=== PATIENT | female | born 1940 | race American Indian/Alaskan Native ===

== ENCOUNTER 2020-07-19 19:12 | Inpatient (IN) | payer OTHER ==
[2020-07-19 19:30] VITALS: BMI 26.4
[2020-07-19] MEDS ORDERED: SODIUM CHLORIDE 1,000 ML IV STA (20:47)
[2020-07-19] MEDS ORDERED: morphine CARPU-JECT 2 MG/1 ML DISP.SYRIN IVPUSH ONE (20:47)
[2020-07-19] MEDS ORDERED: ONDANSETRON 4 MG/2 ML VIAL IVPUSH ONE (20:47)
[2020-07-19] MEDS ORDERED: ALBUTEROL SO4 2.5/IPRATROPIUM 0.5 INH SOL 3 ML VIAL.NEB. NEB ONE (20:47)
[2020-07-19] MEDS ORDERED: ONDANSETRON 4 MG/2 ML VIAL ONE (20:57)
[2020-07-19] MEDS ORDERED: morphine SULFATE 4 MG/ML VIAL ONE (20:57)
[2020-07-19 21:10] LABS: BASO % 0.4 % (0-2.0); EOS % 0.8 % (0-4.5); HEMATOCRIT 37.5 % (32.4-45.2); HEMOGLOBIN 12.6 GM/dL (10.7-15.3); LYMPH % 13.1 % (8-40); MCH 29.6 pg (25.7-33.7); MCHC 33.5 g/dl (32.0-36.0); MEAN CELL VOLUME 88.3 fl (80-96); MONO % 3.8 % (3.8-10.2); NEUT % 81.9 % (42.8-82.8); RBC 4.25 M/mm3 (3.60-5.2); RDW 14.3 % (11.6-15.6); WHITE BLOOD COUNT 14.3 K/mm3 (4.0-10.0)
[2020-07-19] MEDS ORDERED: ACETAMINOPHEN 1000 MG/100 ML VIAL (NON FORMULARY) IVPB ONE (21:13)
[2020-07-19 21:15] LABS: INR 1.06 (0.83-1.09); PROTHROMBIN TIME (PATIENT) 12.8 SEC (9.7-13.0)
[2020-07-19 21:18] LABS: ACTIVATED PTT 32.7 SECONDS (25.2-36.5)
[2020-07-19 21:25] LABS: CHLORIDE 93 mmol/L (98-107); POTASSIUM 4.2 mmol/L (3.5-5.1); SODIUM 132 mmol/L (136-145)
[2020-07-19 21:27] LABS: ALBUMIN 4.1 g/dl (3.4-5.0); ANION GAP 11 MMOL/L (8-16); BLOOD UREA NITROGEN 10.2 mg/dL (7-18); CO2 28 mmol/L (21-32); GLUCOSE,RANDOM 141 mg/dL (74-106)
[2020-07-19 21:28] LABS: LIPASE 132 U/L (73-393)
[2020-07-19 21:30] LABS: CREATININE 0.6 mg/dL (0.55-1.3); SGOT/AST 19 U/L (15-37); SGPT/ALT 27 U/L (13-61)
[2020-07-19 21:32] LABS: BILIRUBIN,TOTAL 0.7 mg/dL (0.2-1); TOT PROT 7.9 g/dl (6.4-8.2)
[2020-07-19 21:33] LABS: ALK PHOS 94 U/L (45-117)
[2020-07-19] MEDS ORDERED: ACETAMINOPHEN INJECTION 100 ML IVPB ONE (21:51)
[2020-07-19 22:21] LABS: EPI CELLS 5 /uL (0-25.1); HYALINE CASTS 1 /uL (0-3.1); URINE APPEARANCE CLEAR; URINE BACTERIA 735 /uL (0-1359); URINE BILIRUBIN NEGATIVE (NEGATIVE); URINE COLOR YELLOW; URINE GLUCOSE (UA) NEGATIVE (NEGATIVE); URINE KETONE NEGATIVE (NEGATIVE); URINE LEUK ESTERASE 1+ (NEGATIVE); URINE NITRITE NEGATIVE (NEGATIVE); URINE PROTEIN NEGATIVE (NEGATIVE); URINE RBC 9 /uL (0-23.9); URINE UROBILINOGEN 0.2 mg/dL (0.2-1.0); URINE WBC 11 /uL (0-25.8)
[2020-07-20] MEDS ORDERED: LACTATED RINGERS SOLUTION 1,000 ML/1,000 ML INFUS.BAG IV SCH (02:45)
[2020-07-20] MEDS ORDERED: CEFTRIAXONE 1 GM in DEXTROSE 5%-WATER - 100 ML IVPB ONE (02:51)
[2020-07-20] MEDS ORDERED: CEFTRIAXONE 1 GM/50 ML BAG ONE (02:59)
[2020-07-20] MEDS ORDERED: LOSARTAN POTASSIUM 25 MG TABLET PO ONE (04:11)
[2020-07-20] MEDS ORDERED: SODIUM CHLORIDE 1,000 ML IV SCH (05:00)
[2020-07-20] MEDS ORDERED: ACETAMINOPHEN 325 MG TABLET (FP) PO PRN ×2 (05:01→12:30)
[2020-07-20] MEDS ORDERED: ONDANSETRON 4 MG/2 ML VIAL IVPUSH PRN ×4 (05:01→12:30)
[2020-07-20] MEDS: INSULIN SLIDING SCALE (NOVOLOG) 1 VIAL SQ SCH ×4 (08:34→22:39)
[2020-07-20] MEDS ORDERED: METOPROLOL TARTRATE 50 MG TABLET (FP) PO SCH (10:00)
[2020-07-20] MEDS ORDERED: CEFTRIAXONE 1 GM in DEXTROSE 5%-WATER - 50 ML IVPB SCH (10:00)
[2020-07-20] MEDS ORDERED: PANTOPRAZOLE 20 MG TABLET PO SCH (10:00)
[2020-07-20] MEDS ORDERED: oxyCODONE HCL 5 MG TABLET PO PRN ×2 (11:05→12:30)
[2020-07-20] MEDS ORDERED: BACITRACIN 15 GM TUBE TOPICAL OINTMENT ONE (11:22)
[2020-07-20] MEDS ORDERED: BACITRACIN 15 GM TUBE TOPICAL OINTMENT TP ONE (11:32)
[2020-07-20] MEDS ORDERED: morphine CARPU-JECT 2 MG/1 ML DISP.SYRIN IVPUSH PRN (12:30)
[2020-07-20] MEDS ORDERED: ACETAMINOPHEN 1000 MG/100 ML VIAL (NON FORMULARY) IVPB ONE (12:32)
[2020-07-20] MEDS ORDERED: cefTRIAXone SODIUM 1 GM VIAL IVPB ONE (13:57)
[2020-07-20] MEDS: CEFTRIAXONE 1 GM in DEXTROSE 5%-WATER - 50 ML IVPB SCH (15:31)
[2020-07-20] MEDS: SODIUM CHLORIDE 1,000 ML IV SCH (15:32)
[2020-07-20 16:00] LABS: HEMATOCRIT 33.6 % (32.4-45.2); HEMOGLOBIN 10.9 GM/dL (10.7-15.3); MCHC 32.5 g/dl (32.0-36.0); MEAN CELL VOLUME 89.5 fl (80-96); RBC 3.75 M/mm3 (3.60-5.2); RDW 14.5 % (11.6-15.6); WHITE BLOOD COUNT 14.6 K/mm3 (4.0-10.0)
[2020-07-20 16:02] LABS: INR 1.12 (0.83-1.09); PROTHROMBIN TIME (PATIENT) 13.7 SEC (9.7-13.0)
[2020-07-20 16:04] LABS: ACTIVATED PTT 28.9 SECONDS (25.2-36.5)
[2020-07-20 16:12] LABS: POTASSIUM 3.6 mmol/L (3.5-5.1)
[2020-07-20 16:14] LABS: CALCIUM 8.1 mg/dL (8.5-10.1)
[2020-07-20 16:15] LABS: ALBUMIN 3.3 g/dl (3.4-5.0); BLOOD UREA NITROGEN 6.8 mg/dL (7-18); MAGNESIUM 1.5 mg/dL (1.8-2.4)
[2020-07-20 16:18] LABS: CREATININE 0.5 mg/dL (0.55-1.3); PHOSPHOROUS 3.3 mg/dL (2.5-4.9)
[2020-07-20 16:19] LABS: BILIRUBIN,TOTAL 0.5 mg/dL (0.2-1); TOT PROT 6.5 g/dl (6.4-8.2)
[2020-07-20] MEDS: METOPROLOL TARTRATE 50 MG TABLET (FP) PO SCH (22:39)
[2020-07-21] MEDS: INSULIN SLIDING SCALE (NOVOLOG) 1 VIAL SQ SCH ×5 (06:28→22:28)
[2020-07-21] MEDS ORDERED: cefTRIAXone SODIUM 1 GM VIAL ONE (09:39)
[2020-07-21] MEDS ORDERED: DEXTROSE 5%-WATER - 50 ML IVPB ONE (09:39)
[2020-07-21] MEDS: PANTOPRAZOLE 20 MG TABLET PO SCH (10:14)
[2020-07-21] MEDS: CEFTRIAXONE 1 GM in DEXTROSE 5%-WATER - 50 ML IVPB SCH (10:15)
[2020-07-21] MEDS: METOPROLOL TARTRATE 50 MG TABLET (FP) PO SCH ×2 (10:15→22:28)
[2020-07-21] MEDS: SODIUM CHLORIDE 1,000 ML IV SCH (17:56)
[2020-07-22] MEDS: INSULIN SLIDING SCALE (NOVOLOG) 1 VIAL SQ SCH ×4 (06:38→21:40)
[2020-07-22] MEDS ORDERED: cefTRIAXone SODIUM 1 GM VIAL ONE ×2 (09:09→09:14)
[2020-07-22] MEDS ORDERED: DEXTROSE 5%-WATER - 50 ML IVPB ONE ×2 (09:09→09:14)
[2020-07-22 09:10] LABS: HEMATOCRIT 28.7 % (32.4-45.2); HEMOGLOBIN 9.6 GM/dL (10.7-15.3); MCH 29.6 pg (25.7-33.7); MCHC 33.3 g/dl (32.0-36.0); MEAN PLT VOLUME 7.5 fl (7.5-11.1); PLATELET COUNT 46 K/MM3 (134-434); RBC 3.23 M/mm3 (3.60-5.2); RDW 14.2 % (11.6-15.6); WHITE BLOOD COUNT 11.7 K/mm3 (4.0-10.0)
[2020-07-22] MEDS: PANTOPRAZOLE 20 MG TABLET PO SCH (09:12)
[2020-07-22] MEDS: METOPROLOL TARTRATE 50 MG TABLET (FP) PO SCH ×2 (09:12→21:40)
[2020-07-22] MEDS: CEFTRIAXONE 1 GM in DEXTROSE 5%-WATER - 50 ML IVPB SCH (09:15)
[2020-07-22 09:30] LABS: POTASSIUM 3.2 mmol/L (3.5-5.1)
[2020-07-22 09:33] LABS: BLOOD UREA NITROGEN 3.9 mg/dL (7-18); CALCIUM 7.8 mg/dL (8.5-10.1)
[2020-07-22 09:34] LABS: ALBUMIN 2.9 g/dl (3.4-5.0); MAGNESIUM 1.8 mg/dL (1.8-2.4)
[2020-07-22 09:37] LABS: CREATININE 0.4 mg/dL (0.55-1.3)
[2020-07-22 09:38] LABS: BILIRUBIN,TOTAL 0.7 mg/dL (0.2-1); TOT PROT 5.9 g/dl (6.4-8.2)
[2020-07-22] MEDS ORDERED: POTASSIUM CHLORIDE TABS 20 MEQ TABLET.ER (FP) PO ONE (10:00)
[2020-07-22] MEDS ORDERED: MAGNESIUM HYDROX 2400MG/30ML ORAL SUSPENSION 30 ML CUP PO ONE (10:00)
[2020-07-22] MEDS: BACITRACIN 15 GM TUBE TOPICAL OINTMENT TP SCH ×2 (12:10→21:41)
[2020-07-22] MEDS: ENOXAPARIN NA (PORCINE) 60 MG/0.6 ML DISP.SYRIN SQ SCH ×2 (12:11→21:39)
[2020-07-22] MEDS: SENNOSIDES 8.6MG TABLET (FP) PO SCH (21:40)
[2020-07-22] MEDS: SODIUM CHLORIDE 1,000 ML IV SCH (21:41)
[2020-07-23] MEDS: INSULIN SLIDING SCALE (NOVOLOG) 1 VIAL SQ SCH ×4 (06:18→22:34)
[2020-07-23 09:27] LABS: POTASSIUM 3.4 mmol/L (3.5-5.1)
[2020-07-23] MEDS ORDERED: cefTRIAXone SODIUM 1 GM VIAL ONE (09:30)
[2020-07-23] MEDS ORDERED: DEXTROSE 5%-WATER - 50 ML IVPB ONE (09:30)
[2020-07-23 09:36] LABS: CALCIUM 7.9 mg/dL (8.5-10.1)
[2020-07-23 09:37] LABS: BLOOD UREA NITROGEN 3.5 mg/dL (7-18)
[2020-07-23 09:40] LABS: CREATININE 0.5 mg/dL (0.55-1.3)
[2020-07-23] MEDS: PANTOPRAZOLE 20 MG TABLET PO SCH (09:52)
[2020-07-23] MEDS: ENOXAPARIN NA (PORCINE) 60 MG/0.6 ML DISP.SYRIN SQ SCH ×2 (09:52→22:35)
[2020-07-23] MEDS: METOPROLOL TARTRATE 50 MG TABLET (FP) PO SCH ×2 (09:52→22:35)
[2020-07-23] MEDS: CEFTRIAXONE 1 GM in DEXTROSE 5%-WATER - 50 ML IVPB SCH (09:53)
[2020-07-23] MEDS: POLYETHYLENE GLYCOL 3350 119 GM BTL PO SCH (09:53)
[2020-07-23] MEDS: BACITRACIN 15 GM TUBE TOPICAL OINTMENT TP SCH ×2 (10:01→22:45)
[2020-07-23] MEDS ORDERED: INSULIN (NOVOLOG) ASPART 100 UNITS/ML 10ML VIAL ONE (22:22)
[2020-07-23] MEDS: SENNOSIDES 8.6MG TABLET (FP) PO SCH (22:37)
[2020-07-24] MEDS: INSULIN SLIDING SCALE (NOVOLOG) 1 VIAL SQ SCH ×4 (06:17→23:20)
[2020-07-24 08:42] LABS: HEMATOCRIT 31.8 % (32.4-45.2); HEMOGLOBIN 10.6 GM/dL (10.7-15.3); MCH 29.7 pg (25.7-33.7); MCHC 33.4 g/dl (32.0-36.0); MEAN CELL VOLUME 89.1 fl (80-96); MEAN PLT VOLUME 7.6 fl (7.5-11.1); RBC 3.57 M/mm3 (3.60-5.2); RDW 14.6 % (11.6-15.6)
[2020-07-24 08:59] LABS: POTASSIUM 3.4 mmol/L (3.5-5.1)
[2020-07-24] MEDS ORDERED: cefTRIAXone SODIUM 1 GM VIAL ONE (09:00)
[2020-07-24] MEDS ORDERED: DEXTROSE 5%-WATER - 50 ML IVPB ONE (09:01)
[2020-07-24 09:03] LABS: ALBUMIN 3.1 g/dl (3.4-5.0); BLOOD UREA NITROGEN 5.2 mg/dL (7-18); CALCIUM 8.3 mg/dL (8.5-10.1)
[2020-07-24 09:06] LABS: CREATININE 0.5 mg/dL (0.55-1.3)
[2020-07-24 09:08] LABS: BILIRUBIN,TOTAL 1.2 mg/dL (0.2-1); TOT PROT 6.4 g/dl (6.4-8.2)
[2020-07-24] MEDS ORDERED: POTASSIUM CHLORIDE TABS 20 MEQ TABLET.ER (FP) PO ONE (09:22)
[2020-07-24 10:25] LABS: ANISOCYTOSIS 1+; MACROCYTOSIS 1+
[2020-07-24] MEDS: METOPROLOL TARTRATE 50 MG TABLET (FP) PO SCH ×2 (10:25→23:08)
[2020-07-24] MEDS: POLYETHYLENE GLYCOL 3350 119 GM BTL PO SCH (10:25)
[2020-07-24] MEDS: PANTOPRAZOLE 20 MG TABLET PO SCH (10:26)
[2020-07-24] MEDS: BACITRACIN 15 GM TUBE TOPICAL OINTMENT TP SCH ×2 (10:28→23:20)
[2020-07-24] MEDS: VALSARTAN 80 MG TABLET PO SCH (11:52)
[2020-07-24] MEDS: CEFTRIAXONE 1 GM in DEXTROSE 5%-WATER - 50 ML IVPB SCH (11:56)
[2020-07-24] MEDS: SENNOSIDES 8.6MG TABLET (FP) PO SCH (23:08)
[2020-07-25] MEDS: INSULIN SLIDING SCALE (NOVOLOG) 1 VIAL SQ SCH ×2 (06:51→12:07)
[2020-07-25 08:25] LABS: POTASSIUM 4.3 mmol/L (3.5-5.1)
[2020-07-25 08:41] LABS: BLOOD UREA NITROGEN 8.2 mg/dL (7-18)
[2020-07-25 08:42] LABS: CREATININE 0.5 mg/dL (0.55-1.3)
[2020-07-25 08:46] LABS: BASO % 0.8 % (0-2.0); EOS % 3.4 % (0-4.5); HEMOGLOBIN 9.9 GM/dL (10.7-15.3); LYMPH % 29.6 % (8-40); MCH 29.9 pg (25.7-33.7); MCHC 33.1 g/dl (32.0-36.0); MEAN CELL VOLUME 90.2 fl (80-96); MONO % 8.1 % (3.8-10.2); NEUT % 58.1 % (42.8-82.8); RBC 3.33 M/mm3 (3.60-5.2); RDW 14.9 % (11.6-15.6); WHITE BLOOD COUNT 9.8 K/mm3 (4.0-10.0)
[2020-07-25] MEDS ORDERED: ENOXAPARIN NA (PORCINE) 40 MG/0.4 ML DISP.SYRIN SQ SCH (10:00)
[2020-07-25] MEDS: VALSARTAN 80 MG TABLET PO SCH (10:06)
[2020-07-25] MEDS: PANTOPRAZOLE 20 MG TABLET PO SCH (10:06)
[2020-07-25] MEDS: POLYETHYLENE GLYCOL 3350 119 GM BTL PO SCH (10:06)
[2020-07-25] MEDS: METOPROLOL TARTRATE 50 MG TABLET (FP) PO SCH (10:06)
[2020-07-25] MEDS: BACITRACIN 15 GM TUBE TOPICAL OINTMENT TP SCH (10:11)
[2020-07-25 11:00] LABS: PLATELET ESTIMATE CANNOT ENUMERATE
[2020-07-25 12:30] VITALS: BP 154/65; PULSE 82; TEMP 98.3
== END 2020-07-25 14:28 | disposition home or self-care (01) | DRG 354 ==
LOC: JER 19:12 → JERBED 07-20 02:53 → J6S 07-20 14:53
PROVIDERS: ADMIT Hospitalist; ATTEND Family Medicine
PROC: 0WQF0ZZ Repair Abdominal Wall, Open Approach (ICD-10-PCS; 2020-07-20)
PROC: 0DBU0ZZ Excision of Omentum, Open Approach (ICD-10-PCS; principal; 2020-07-20 11:00)
DX: K42.0 Umbilical hernia with obstruction, without gangrene (principal); N39.0 Urinary tract infection, site not specified; E87.1 Hypo-osmolality and hyponatremia; R18.8 Other ascites; I10 Essential (primary) hypertension; E11.9 Type 2 diabetes mellitus without complications; D72.829 Elevated white blood cell count, unspecified; E87.6 Hypokalemia; D25.9 Leiomyoma of uterus, unspecified; K76.89 Other specified diseases of liver; K43.9 Ventral hernia without obstruction or gangrene
CPT/HCPCS: 36415; 74177-TC; 80048; 80053; 81003; 82533; 82550; 82962; 83605; 83690; 83735; 83930; 84100; 84443; 84484; 85025; 85027; 85610; 85730; 86850; 86900; 86901; 87086; 88302-TC; 93005; 93010; 94760; 97116-GP; 97161-GP; 99285-25; C9803; J0131; Q9967; U0003

== ENCOUNTER 2020-10-10 21:57 | Inpatient (IN) | payer OTHER ==
[2020-10-10 22:50] VITALS: BMI 34.6
[2020-10-10] MEDS ORDERED: ONDANSETRON 4 MG/2 ML VIAL IVPUSH STA (23:07)
[2020-10-10] MEDS ORDERED: SODIUM CHLORIDE 500 ML IV STA (23:10)
[2020-10-10] MEDS ORDERED: morphine CARPU-JECT 2 MG/1 ML DISP.SYRIN IVPUSH ONE (23:34)
[2020-10-10] MEDS ORDERED: LACTATED RINGERS SOLUTION 1000 ML INFUS.BAG IV ONE (23:34)
[2020-10-10] MEDS ORDERED: morphine SULFATE 4 MG/ML VIAL ONE (23:41)
[2020-10-10] MEDS ORDERED: ONDANSETRON 4 MG/2 ML VIAL ONE (23:42)
[2020-10-11] MEDS ORDERED: ACETAMINOPHEN 1000 MG/100 ML VIAL (NON FORMULARY) IVPB ONE (00:07)
[2020-10-11 00:13] LABS: BASO % 0.4 % (0-2.0); EOS % 0.1 % (0-4.5); HEMATOCRIT 35.2 % (32.4-45.2); HEMOGLOBIN 11.5 GM/dL (10.7-15.3); LYMPH % 12.4 % (8-40); MCH 28.3 pg (25.7-33.7); MCHC 32.7 g/dl (32.0-36.0); MEAN CELL VOLUME 86.4 fl (80-96); MEAN PLT VOLUME 8.3 fl (7.5-11.1); MONO % 1.9 % (3.8-10.2); NEUT % 85.2 % (42.8-82.8); PLATELET COUNT 102 K/MM3 (134-434); RBC 4.07 M/mm3 (3.60-5.2); RDW 14.8 % (11.6-15.6); WHITE BLOOD COUNT 14.7 K/mm3 (4.0-10.0)
[2020-10-11 00:43] LABS: SGPT/ALT 25 U/L (13-61)
[2020-10-11 00:45] LABS: BILIRUBIN,TOTAL 0.7 mg/dL (0.2-1); TOT PROT 7.8 g/dl (6.4-8.2)
[2020-10-11 00:46] LABS: ALK PHOS 101 U/L (45-117)
[2020-10-11 01:27] LABS: EPI CELLS 8 /uL (0-25.1); HYALINE CASTS 0 /uL (0-3.1); PH,URINE 7.5 (5.0-8.0); URINE APPEARANCE CLEAR; URINE BACTERIA 64 /uL (0-1359); URINE BILIRUBIN NEGATIVE (NEGATIVE); URINE COLOR YELLOW; URINE GLUCOSE (UA) 1+ (NEGATIVE); URINE KETONE 1+ (NEGATIVE); URINE LEUK ESTERASE 1+ (NEGATIVE); URINE NITRITE NEGATIVE (NEGATIVE); URINE PROTEIN TRACE (NEGATIVE); URINE RBC 19 /uL (0-23.9); URINE UROBILINOGEN 0.2 mg/dL (0.2-1.0); URINE WBC 50 /uL (0-25.8)
[2020-10-11 02:10] LABS: CHLORIDE 95 mmol/L (98-107); POTASSIUM 4.3 mmol/L (3.5-5.1); SODIUM 132 mmol/L (136-145)
[2020-10-11 02:57] LABS: ANION GAP 11 MMOL/L (8-16); BLOOD UREA NITROGEN 10.8 mg/dL (7-18); CALCIUM 9.4 mg/dL (8.5-10.1); CO2 26 mmol/L (21-32); CREATININE 0.6 mg/dL (0.55-1.3); GLUCOSE,RANDOM 183 mg/dL (74-106); LIPASE 82 U/L (73-393); SGOT/AST 37 U/L (15-37)
[2020-10-11] MEDS ORDERED: ONDANSETRON 4 MG/2 ML VIAL IVPUSH ONE (05:53)
[2020-10-11] MEDS ORDERED: ONDANSETRON 4 MG/2 ML VIAL ONE (05:55)
[2020-10-11] MEDS: INSULIN SLIDING SCALE (NOVOLOG) 1 VIAL SQ SCH ×4 (07:52→21:21)
[2020-10-11] MEDS: LOSARTAN POTASSIUM 50 MG TABLET PO SCH (10:04)
[2020-10-11] MEDS ORDERED: CEFTRIAXONE 1 GM/50 ML BAG ONE (10:09)
[2020-10-11] MEDS: CEFTRIAXONE 1 GM in DEXTROSE 5%-WATER - 50 ML IVPB SCH (10:27)
[2020-10-11] MEDS ORDERED: LIDOCAINE HCL 1%, 10 MG/ML (20ML VIAL) ONE (11:04)
[2020-10-11] MEDS ORDERED: LIDOCAINE HCL/PF 2% SDV 5ML VIAL ONE (11:17)
[2020-10-11] MEDS ORDERED: fentaNYL CITRATE 250 MCG/5 ML VIAL ONE (11:17)
[2020-10-11] MEDS ORDERED: PROPOFOL 20 ML ONE (11:17)
[2020-10-11 11:38] LABS: BASO % 1.9 % (0-2.0); HEMATOCRIT 35.9 % (32.4-45.2); MCH 28.4 pg (25.7-33.7); MCHC 33.3 g/dl (32.0-36.0); MEAN CELL VOLUME 85.1 fl (80-96); MONO % 2.5 % (3.8-10.2); NEUT % 85.6 % (42.8-82.8); RBC 4.21 M/mm3 (3.60-5.2); RDW 14.4 % (11.6-15.6)
[2020-10-11 11:41] LABS: INR 1.12 (0.83-1.09); PROTHROMBIN TIME (PATIENT) 13.5 SEC (9.7-13.0)
[2020-10-11 11:43] LABS: WHITE BLOOD COUNT 13.3 K/mm3 (4.0-10.0)
[2020-10-11 12:02] LABS: POTASSIUM 3.5 mmol/L (3.5-5.1)
[2020-10-11 12:04] LABS: CALCIUM 9.5 mg/dL (8.5-10.1)
[2020-10-11 12:05] LABS: ALBUMIN 3.9 g/dl (3.4-5.0); BLOOD UREA NITROGEN 7.3 mg/dL (7-18)
[2020-10-11 12:08] LABS: CREATININE 0.7 mg/dL (0.55-1.3); PHOSPHOROUS 4.2 mg/dL (2.5-4.9)
[2020-10-11 12:09] LABS: BILIRUBIN,TOTAL 0.5 mg/dL (0.2-1)
[2020-10-11] MEDS ORDERED: ROCURONIUM BROMIDE 50 MG/5 ML SYRINGE ONE (12:13)
[2020-10-11] MEDS ORDERED: LIDOCAINE HCL 1%, 10 MG/ML (20ML VIAL) INF ONE (12:23)
[2020-10-11] MEDS ORDERED: BUPIVACAINE HCL/PF 0.5% (5 MG/ML) 30 ML VIAL IJ ONE ×2 (12:23)
[2020-10-11] MEDS ORDERED: BENZOIN/ALOE VERA/STORAX/TOLU 58 ML BOTTLE ONE (12:51)
[2020-10-11] MEDS ORDERED: NEOSTIGMINE METHYLSULFATE 0.5 MG/ML - 10 ML MDV ONE (13:07)
[2020-10-11] MEDS ORDERED: GLYCOPYRROLATE 0.2 MG/1 ML VIAL ONE ×2 (13:17→14:37)
[2020-10-11] MEDS ORDERED: ESMOLOL HCL 100,000 MCG/10 ML VIAL ONE (13:30)
[2020-10-11] MEDS ORDERED: oxyCODONE HCL 5 MG TABLET PO PRN (14:36)
[2020-10-11] MEDS ORDERED: PROMETHAZINE HCL 25 MG/1 ML VIAL IVPUSH PRN (14:36)
[2020-10-11] MEDS ORDERED: NEOSTIGMINE METHYLSULFATE 0.5 MG/1 ML - 10 ML MDV ONE (14:37)
[2020-10-11] MEDS ORDERED: ACETAMINOPHEN 1000 MG/100 ML VIAL (NON FORMULARY) IVPB PRN (14:38)
[2020-10-11] MEDS: SODIUM CHLORIDE 1,000 ML IV SCH (16:46)
[2020-10-11] MEDS: SENNOSIDES 8.6MG TABLET (FP) PO SCH (21:23)
[2020-10-11] MEDS: METOPROLOL TARTRATE 50 MG TABLET (FP) PO SCH (21:23)
[2020-10-11] MEDS: ATORVASTATIN CA 10 MG TABLET (FP) PO SCH (21:23)
[2020-10-11] MEDS: CALCIUM (OYSTER SHELL) 500 MG TABLET (FP) PO SCH (21:23)
[2020-10-11] MEDS ORDERED: CALCIUM 250 MG PO SCH (22:00)
[2020-10-12] MEDS: SODIUM CHLORIDE 1,000 ML IV SCH (03:39)
[2020-10-12] MEDS: INSULIN SLIDING SCALE (NOVOLOG) 1 VIAL SQ SCH ×4 (06:35→21:54)
[2020-10-12 07:59] LABS: HEMATOCRIT 29.6 % (32.4-45.2); HEMOGLOBIN 9.9 GM/dL (10.7-15.3); MCH 28.8 pg (25.7-33.7); MCHC 33.5 g/dl (32.0-36.0); MEAN CELL VOLUME 86.1 fl (80-96); MEAN PLT VOLUME 7.4 fl (7.5-11.1); RBC 3.44 M/mm3 (3.60-5.2); RDW 14.2 % (11.6-15.6); WHITE BLOOD COUNT 13.1 K/mm3 (4.0-10.0)
[2020-10-12 08:21] LABS: BLOOD UREA NITROGEN 6.1 mg/dL (7-18); CALCIUM 8.4 mg/dL (8.5-10.1)
[2020-10-12 08:24] LABS: CREATININE 0.4 mg/dL (0.55-1.3)
[2020-10-12 08:34] LABS: ALBUMIN 2.8 g/dl (3.4-5.0); TOT PROT 5.5 g/dl (6.4-8.2)
[2020-10-12] MEDS ORDERED: DEXTROSE 5%-WATER - 50 ML IVPB ONE (08:50)
[2020-10-12] MEDS ORDERED: cefTRIAXone SODIUM 1 GM VIAL ONE (08:50)
[2020-10-12 09:33] LABS: PLATELET COUNT 25 K/MM3 (134-434)
[2020-10-12] MEDS: CHOLECALCIFEROL (VIT D3) 1,000 UNIT (25 MCG) TABLET PO SCH (09:34)
[2020-10-12] MEDS: ZINC SULFATE 220 MG CAPSULE (FP) PO SCH (09:34)
[2020-10-12] MEDS: CALCIUM (OYSTER SHELL) 500 MG TABLET (FP) PO SCH ×2 (09:36→21:30)
[2020-10-12] MEDS: LOSARTAN POTASSIUM 50 MG TABLET PO SCH (09:36)
[2020-10-12] MEDS: METOPROLOL TARTRATE 50 MG TABLET (FP) PO SCH ×2 (09:36→21:29)
[2020-10-12] MEDS: CEFTRIAXONE 1 GM in DEXTROSE 5%-WATER - 50 ML IVPB SCH (09:36)
[2020-10-12] MEDS: ASPIRIN 81 MG CHEWABLE TABLETS PO SCH (09:36)
[2020-10-12] MEDS: ONDANSETRON 4 MG/2 ML VIAL IVPUSH PRN (09:37)
[2020-10-12] MEDS: ASCORBIC ACID 250 MG TABLET (FP) PO SCH (09:37)
[2020-10-12] MEDS ORDERED: PANTOPRAZOLE 20 MG TABLET PO SCH (10:00)
[2020-10-12] MEDS ORDERED: CHOLECALCIFEROL U PO SCH (10:00)
[2020-10-12 15:54] LABS: BASO % 1.2 % (0-2.0); EOS % 1.1 % (0-4.5); HEMATOCRIT 31.9 % (32.4-45.2); HEMOGLOBIN 10.4 GM/dL (10.7-15.3); LYMPH % 22.5 % (8-40); MCH 28.3 pg (25.7-33.7); MCHC 32.5 g/dl (32.0-36.0); MEAN CELL VOLUME 86.9 fl (80-96); MONO % 5.1 % (3.8-10.2); NEUT % 70.1 % (42.8-82.8); RBC 3.67 M/mm3 (3.60-5.2); RDW 14.4 % (11.6-15.6); RETICULOCYTES 1.31 % (0.5-1.5); WHITE BLOOD COUNT 14.6 K/mm3 (4.0-10.0)
[2020-10-12 16:00] LABS: INR 1.08 (0.83-1.09); PROTHROMBIN TIME (PATIENT) 13.3 SEC (9.7-13.0)
[2020-10-12 17:22] LABS: ANISOCYTOSIS 0; MACROCYTOSIS 0; OVALOCYTE 1+
[2020-10-12] MEDS: ALBUTEROL SO4 0.083% IH SOL 2.5 MG/3 ML VIAL.NEB. NEB PRN (21:18)
[2020-10-12] MEDS: ATORVASTATIN CA 10 MG TABLET (FP) PO SCH (21:29)
[2020-10-12] MEDS: SENNOSIDES 8.6MG TABLET (FP) PO SCH (21:31)
[2020-10-12] MEDS: oxyCODONE HCL 5 MG TABLET PO PRN (21:32)
[2020-10-13] MEDS: INSULIN SLIDING SCALE (NOVOLOG) 1 VIAL SQ SCH ×4 (06:27→22:10)
[2020-10-13] MEDS: ALBUTEROL SO4 0.083% IH SOL 2.5 MG/3 ML VIAL.NEB. NEB PRN (06:35)
[2020-10-13] MEDS: ZINC SULFATE 220 MG CAPSULE (FP) PO SCH (09:05)
[2020-10-13] MEDS: ASCORBIC ACID 250 MG TABLET (FP) PO SCH (09:05)
[2020-10-13] MEDS: oxyCODONE HCL 5 MG TABLET PO PRN (09:05)
[2020-10-13] MEDS: ASPIRIN 81 MG CHEWABLE TABLETS PO SCH (09:05)
[2020-10-13] MEDS: METOPROLOL TARTRATE 50 MG TABLET (FP) PO SCH ×2 (09:06→22:09)
[2020-10-13] MEDS: CALCIUM (OYSTER SHELL) 500 MG TABLET (FP) PO SCH ×2 (09:07→22:09)
[2020-10-13] MEDS: ONDANSETRON 4 MG/2 ML VIAL IVPUSH PRN (09:07)
[2020-10-13] MEDS ORDERED: ACETAMINOPHEN 325 MG TABLET (FP) PO PRN (09:24)
[2020-10-13 09:40] LABS: BASO % 0.4 % (0-2.0); HEMATOCRIT 30.6 % (32.4-45.2); HEMOGLOBIN 9.9 GM/dL (10.7-15.3); LYMPH % 19.8 % (8-40); MCHC 32.5 g/dl (32.0-36.0); MEAN CELL VOLUME 86.2 fl (80-96); MONO % 7.7 % (3.8-10.2); NEUT % 71.1 % (42.8-82.8); RBC 3.55 M/mm3 (3.60-5.2); RDW 14.4 % (11.6-15.6); WHITE BLOOD COUNT 13.2 K/mm3 (4.0-10.0)
[2020-10-13 09:56] LABS: CHLORIDE 96 mmol/L (98-107); SODIUM 132 mmol/L (136-145)
[2020-10-13 09:59] LABS: CALCIUM 8.8 mg/dL (8.5-10.1)
[2020-10-13 10:00] LABS: ALBUMIN 2.8 g/dl (3.4-5.0); BLOOD UREA NITROGEN 5.1 mg/dL (7-18); CO2 29 mmol/L (21-32); GLUCOSE,RANDOM 159 mg/dL (74-106)
[2020-10-13 10:03] LABS: CREATININE 0.5 mg/dL (0.55-1.3); SGOT/AST 19 U/L (15-37); SGPT/ALT 19 U/L (13-61)
[2020-10-13 10:04] LABS: BILIRUBIN,TOTAL 0.9 mg/dL (0.2-1); TOT PROT 5.9 g/dl (6.4-8.2)
[2020-10-13 10:05] LABS: ALK PHOS 76 U/L (45-117)
[2020-10-13 10:07] LABS: ANION GAP 7 MMOL/L (8-16); POTASSIUM 2.9 mmol/L (3.5-5.1)
[2020-10-13] MEDS: LOSARTAN POTASSIUM 50 MG TABLET PO SCH (10:24)
[2020-10-13] MEDS: CHOLECALCIFEROL (VIT D3) 1,000 UNIT (25 MCG) TABLET PO SCH (10:24)
[2020-10-13] MEDS: ALBUTEROL SO4 2.5/IPRATROPIUM 0.5 INH SOL 3 ML VIAL.NEB. NEB SCH ×3 (11:40→20:21)
[2020-10-13] MEDS: KCL 10 MEQ IVPB 10 MEQ/100 ML INFUS.BAG IVPB SCH ×3 (12:38→16:32)
[2020-10-13 21:06] LABS: POTASSIUM 3.9 mmol/L (3.5-5.1)
[2020-10-13 21:08] LABS: CALCIUM 8.3 mg/dL (8.5-10.1)
[2020-10-13 21:12] LABS: CREATININE 0.5 mg/dL (0.55-1.3)
[2020-10-13] MEDS: ATORVASTATIN CA 10 MG TABLET (FP) PO SCH (22:09)
[2020-10-13] MEDS: SENNOSIDES 8.6MG TABLET (FP) PO SCH (22:09)
[2020-10-14] MEDS: ALBUTEROL SO4 0.083% IH SOL 2.5 MG/3 ML VIAL.NEB. NEB PRN (05:26)
[2020-10-14] MEDS: INSULIN SLIDING SCALE (NOVOLOG) 1 VIAL SQ SCH ×3 (06:06→18:57)
[2020-10-14] MEDS: ALBUTEROL SO4 2.5/IPRATROPIUM 0.5 INH SOL 3 ML VIAL.NEB. NEB SCH ×3 (07:20→15:59)
[2020-10-14] MEDS: CHOLECALCIFEROL (VIT D3) 1,000 UNIT (25 MCG) TABLET PO SCH (09:40)
[2020-10-14] MEDS: METOPROLOL TARTRATE 50 MG TABLET (FP) PO SCH (09:40)
[2020-10-14] MEDS: ASPIRIN 81 MG CHEWABLE TABLETS PO SCH (09:40)
[2020-10-14] MEDS: ZINC SULFATE 220 MG CAPSULE (FP) PO SCH (09:40)
[2020-10-14] MEDS: CALCIUM (OYSTER SHELL) 500 MG TABLET (FP) PO SCH (09:41)
[2020-10-14] MEDS: LOSARTAN POTASSIUM 50 MG TABLET PO SCH (09:41)
[2020-10-14] MEDS: ASCORBIC ACID 250 MG TABLET (FP) PO SCH (12:10)
[2020-10-14 13:28] LABS: POTASSIUM 3.5 mmol/L (3.5-5.1)
[2020-10-14 13:31] LABS: CALCIUM 8.9 mg/dL (8.5-10.1)
[2020-10-14 13:32] LABS: BLOOD UREA NITROGEN 4.3 mg/dL (7-18)
[2020-10-14 13:35] LABS: CREATININE 0.4 mg/dL (0.55-1.3)
[2020-10-14 16:13] VITALS: BP 132/58; PULSE 99; TEMP 98.9
== END 2020-10-14 05:00 | disposition home or self-care (01) | DRG 352 ==
LOC: JER 21:57 → JERBED 10-11 04:39 → J6WEST-2 10-11 19:46
PROVIDERS: ADMIT Internal Medicine; ATTEND Family Medicine
PROC: 0YU60JZ Supplement Left Inguinal Region with Synthetic Substitute, Open Approach (ICD-10-PCS; principal; 2020-10-11 11:00)
DX: K40.30 Unilateral inguinal hernia, with obstruction, without gangrene, not specified as recurrent (principal); E11.9 Type 2 diabetes mellitus without complications; I10 Essential (primary) hypertension; D69.6 Thrombocytopenia, unspecified; J45.909 Unspecified asthma, uncomplicated
CPT/HCPCS: 36415; 71045-TC-FY; 74177-TC; 80048; 80053; 81003; 82550; 82728; 82962; 83010; 83605; 83615; 83690; 83735; 84100; 84484; 85025; 85027; 85032; 85045; 85379; 85384; 85610; 86850; 86900; 86901; 93005; 93010; 94002; 94010; 94640; 94760; 97116-GP; 97162-GP; 99285-25; C9803; J0131; U0003

== ENCOUNTER 2021-12-25 08:57 | Emergency (ER) | payer OTHER ==
[2021-12-25 09:17] VITALS: TEMP 98.4; BMI 27.8
[2021-12-25] MEDS ORDERED: LIDOCAINE 5% TOPICAL PATCH TP ONE (10:47)
[2021-12-25] MEDS ORDERED: ACETAMINOPHEN 500 MG TABLET (FP) PO ONE (10:47)
[2021-12-25] MEDS ORDERED: LIDOCAINE 5% TOPICAL PATCH ONE (10:55)
[2021-12-25] MEDS ORDERED: ACETAMINOPHEN 325 MG TABLET (FP) ONE (10:55)
[2021-12-25] MEDS ORDERED: METHOCARBAMOL 500 MG TABLET PO ONE (12:16)
[2021-12-25] MEDS ORDERED: METHOCARBAMOL 500 MG TABLET ONE (13:04)
[2021-12-25 14:30] VITALS: BP 140/82; PULSE 87
[2021-12-25] MEDS ORDERED: LIDOCAINE PATCH REMOVAL MC ONE (22:00)
== END 2021-12-25 15:10 | disposition home or self-care (01) ==
LOC: JER 08:57
DX: S86.912A Strain of unspecified muscle(s) and tendon(s) at lower leg level, left leg, initial encounter (principal); X50.9XXA Other and unspecified overexertion or strenuous movements or postures, initial encounter
CPT/HCPCS: 72100-TC-FY; 99283-25

== ENCOUNTER 2023-05-12 13:13 | Emergency (ER) | payer OTHER ==
[2023-05-12 14:08] VITALS: TEMP 98.1; BMI 31.4
[2023-05-12] MEDS ORDERED: ACETAMINOPHEN 500 MG TABLET (FP) PO ONE (14:44)
[2023-05-12] MEDS ORDERED: METHOCARBAMOL 500 MG TABLET PO ONE (14:44)
[2023-05-12] MEDS ORDERED: LIDOCAINE 5% TOPICAL PATCH TP ONE (14:44)
[2023-05-12] MEDS ORDERED: LIDOCAINE 4% PATCH TP ONE ×2 (14:52→14:53)
[2023-05-12] MEDS ORDERED: ACETAMINOPHEN 500 MG TABLET (FP) ONE (14:54)
[2023-05-12] MEDS ORDERED: METHOCARBAMOL 500 MG TABLET ONE (14:54)
[2023-05-12 16:46] VITALS: BP 127/68; PULSE 80; RESP 16
[2023-05-12] MEDS ORDERED: LIDOCAINE PATCH REMOVAL MC SCH ×2 (22:00)
== END 2023-05-12 17:04 | disposition home or self-care (01) ==
LOC: JER 13:13
DX: M25.551 Pain in right hip (principal); G89.29 Other chronic pain; M54.50 Low back pain, unspecified
CPT/HCPCS: 72100-TC-FY; 99283-25

== ENCOUNTER 2023-05-20 10:38 | Inpatient (IN) | payer OTHER ==
[2023-05-20] MEDS ORDERED: ACETAMINOPHEN 500 MG TABLET (FP) PO ONE (13:10)
[2023-05-20] MEDS ORDERED: ACETAMINOPHEN 325 MG TABLET (FP) ONE (13:17)
[2023-05-20 13:38] LABS: BASO % 0.7 % (0-2.0); EOS % 0.5 % (0-4.5); HEMATOCRIT 35.6 % (32.4-45.2); HEMOGLOBIN 11.4 GM/dL (10.7-15.3); LYMPH % 29.6 % (8-40); MCH 27.5 pg (25.7-33.7); MCHC 32.1 g/dl (32.0-36.0); MEAN CELL VOLUME 85.6 fl (80-96); MEAN PLT VOLUME 8.5 fl (7.5-11.1); MONO % 9.5 % (3.8-10.2); NEUT % 59.7 % (42.8-82.8); RBC 4.16 M/mm3 (3.60-5.2); RDW 14.9 % (11.6-15.6); WHITE BLOOD COUNT 9.1 K/mm3 (4.0-10.0)
[2023-05-20 14:06] LABS: PLATELET COUNT 11 10^3/uL (134-434)
[2023-05-20 14:10] LABS: POTASSIUM 3.7 mmol/L (3.5-5.1)
[2023-05-20] MEDS ORDERED: SODIUM CHLORIDE 0.9% 500 ML INFUS.BAG IV ONE (14:12)
[2023-05-20 14:13] LABS: ALBUMIN 3.4 g/dl (3.4-5.0); CALCIUM 8.3 mg/dL (8.5-10.1)
[2023-05-20 14:14] LABS: BLOOD UREA NITROGEN 11.6 mg/dL (7-18)
[2023-05-20 14:17] LABS: CREATININE 0.7 mg/dL (0.55-1.3)
[2023-05-20 14:18] LABS: BILIRUBIN,TOTAL 0.5 mg/dL (0.2-1); TOT PROT 6.9 g/dl (6.4-8.2)
[2023-05-20 14:48] LABS: EPI CELLS 1 /uL (0-25.1); HYALINE CASTS 0 /uL (0-3.1); PH,URINE 5.5 (5.0-8.0); URINE APPEARANCE CLEAR; URINE BACTERIA 5523 /uL (0-1359); URINE BILIRUBIN NEGATIVE (NEGATIVE); URINE COLOR YELLOW; URINE GLUCOSE (UA) NEGATIVE (NEGATIVE); URINE KETONE NEGATIVE (NEGATIVE); URINE LEUK ESTERASE 3+ (NEGATIVE); URINE NITRITE NEGATIVE (NEGATIVE); URINE PROTEIN NEGATIVE (NEGATIVE); URINE RBC 10 /uL (0-23.9); URINE UROBILINOGEN 0.2 mg/dL (0.2-1.0); URINE WBC 490 /uL (0-25.8)
[2023-05-20] MEDS ORDERED: CEFTRIAXONE 1,000 MG in DEXTROSE 5%-WATER - 50 ML IVPB ONE (15:26)
[2023-05-20] MEDS ORDERED: CEFTRIAXONE 1 GM/50 ML BAG ONE (15:29)
[2023-05-20] MEDS ORDERED: ALBUTEROL SO4 0.083% IH SOL 2.5 MG/3 ML VIAL.NEB. NEB PRN (15:46)
[2023-05-20 20:02] VITALS: BMI 26.4
[2023-05-20] MEDS: METOPROLOL TARTRATE 50 MG TABLET (FP) PO SCH (21:41)
[2023-05-21] MEDS: guaiFENesin 200 MG/10 ML 10 ML UNIT-DOSE CUPS PO PRN ×3 (00:59→21:56)
[2023-05-21] MEDS: OSELTAMIVIR PHOSPHATE 75 MG CAPSULE PO SCH ×3 (00:59→21:48)
[2023-05-21 07:45] LABS: POTASSIUM 3.8 mmol/L (3.5-5.1)
[2023-05-21 07:50] LABS: BASO % 0.7 % (0-2.0); EOS % 0.9 % (0-4.5); HEMATOCRIT 33.8 % (32.4-45.2); HEMOGLOBIN 11.4 GM/dL (10.7-15.3); MCHC 33.6 g/dl (32.0-36.0); MEAN CELL VOLUME 83.3 fl (80-96); MONO % 8.9 % (3.8-10.2); NEUT % 53.5 % (42.8-82.8); RBC 4.06 M/mm3 (3.60-5.2); RDW 15.1 % (11.6-15.6); WHITE BLOOD COUNT 6.6 K/mm3 (4.0-10.0)
[2023-05-21 07:51] LABS: ALBUMIN 3.1 g/dl (3.4-5.0); BLOOD UREA NITROGEN 7.8 mg/dL (7-18); CALCIUM 7.7 mg/dL (8.5-10.1)
[2023-05-21 07:55] LABS: CREATININE 0.5 mg/dL (0.55-1.3)
[2023-05-21 07:57] LABS: BILIRUBIN,TOTAL 0.3 mg/dL (0.2-1); TOT PROT 6.3 g/dl (6.4-8.2)
[2023-05-21] MEDS: METOPROLOL TARTRATE 50 MG TABLET (FP) PO SCH ×3 (09:51→21:49)
[2023-05-21] MEDS ORDERED: ALBUTEROL SO4 0.083% IH SOL 2.5 MG/3 ML VIAL.NEB. NEB PRN (09:53)
[2023-05-21] MEDS: CEFTRIAXONE 1 GM in DEXTROSE 5%-WATER - 50 ML IVPB SCH (13:38)
[2023-05-21] MEDS: ACETAMINOPHEN 325 MG TABLET (FP) PO PRN (21:56)
[2023-05-22 07:53] LABS: POTASSIUM 3.6 mmol/L (3.5-5.1)
[2023-05-22 07:58] LABS: BLOOD UREA NITROGEN 8.5 mg/dL (7-18)
[2023-05-22 07:59] LABS: CALCIUM 7.6 mg/dL (8.5-10.1)
[2023-05-22 08:01] LABS: CREATININE 0.5 mg/dL (0.55-1.3)
[2023-05-22 08:02] LABS: TOT PROT 6.1 g/dl (6.4-8.2)
[2023-05-22 08:03] LABS: BILIRUBIN,TOTAL 0.3 mg/dL (0.2-1)
[2023-05-22 08:05] LABS: BASO % 0.6 % (0-2.0); EOS % 1.1 % (0-4.5); HEMATOCRIT 33.3 % (32.4-45.2); HEMOGLOBIN 11.1 GM/dL (10.7-15.3); LYMPH % 37.5 % (8-40); MCHC 33.4 g/dl (32.0-36.0); MEAN CELL VOLUME 83.8 fl (80-96); MEAN PLT VOLUME 7.5 fl (7.5-11.1); MONO % 8.9 % (3.8-10.2); NEUT % 51.9 % (42.8-82.8); PLATELET COUNT 126 10^3/uL (134-434); RBC 3.97 M/mm3 (3.60-5.2); RDW 15.5 % (11.6-15.6)
[2023-05-22] MEDS: OSELTAMIVIR PHOSPHATE 75 MG CAPSULE PO SCH ×2 (10:57→22:25)
[2023-05-22] MEDS: CEFTRIAXONE 1 GM in DEXTROSE 5%-WATER - 50 ML IVPB SCH (10:57)
[2023-05-22] MEDS: METOPROLOL TARTRATE 50 MG TABLET (FP) PO SCH ×2 (10:57→22:10)
[2023-05-22] MEDS: PANTOPRAZOLE 20 MG TABLET PO SCH (13:56)
[2023-05-22] MEDS: LOSARTAN POTASSIUM 50 MG TABLET PO SCH (13:56)
[2023-05-22] MEDS: SODIUM CHLORIDE 1 GM TABLET PO SCH ×2 (13:56→22:10)
[2023-05-22] MEDS: guaiFENesin 200 MG/10 ML 10 ML UNIT-DOSE CUPS PO PRN (22:26)
[2023-05-23] MEDS: SODIUM CHLORIDE 1 GM TABLET PO SCH ×2 (10:48→22:05)
[2023-05-23] MEDS: METOPROLOL TARTRATE 50 MG TABLET (FP) PO SCH ×2 (10:48→22:05)
[2023-05-23] MEDS: LOSARTAN POTASSIUM 50 MG TABLET PO SCH (10:48)
[2023-05-23] MEDS: CEFTRIAXONE 1 GM in DEXTROSE 5%-WATER - 50 ML IVPB SCH (10:48)
[2023-05-23] MEDS: PANTOPRAZOLE 20 MG TABLET PO SCH (10:48)
[2023-05-23] MEDS: OSELTAMIVIR PHOSPHATE 75 MG CAPSULE PO SCH ×2 (10:49→22:05)
[2023-05-23] MEDS: guaiFENesin 200 MG/10 ML 10 ML UNIT-DOSE CUPS PO PRN (22:05)
[2023-05-23] MEDS: ACETAMINOPHEN 325 MG TABLET (FP) PO PRN (22:06)
[2023-05-24 09:21] LABS: BASO % 0.7 % (0-2.0); EOS % 1.4 % (0-4.5); HEMATOCRIT 35.4 % (32.4-45.2); HEMOGLOBIN 11.3 GM/dL (10.7-15.3); LYMPH % 38.6 % (8-40); MCH 27.2 pg (25.7-33.7); MEAN CELL VOLUME 85.1 fl (80-96); MONO % 6.8 % (3.8-10.2); NEUT % 52.5 % (42.8-82.8); RBC 4.16 M/mm3 (3.60-5.2); RDW 15.2 % (11.6-15.6); WHITE BLOOD COUNT 6.8 K/mm3 (4.0-10.0)
[2023-05-24 09:27] LABS: POTASSIUM 3.6 mmol/L (3.5-5.1)
[2023-05-24 09:33] LABS: CALCIUM 8.2 mg/dL (8.5-10.1)
[2023-05-24 09:34] LABS: ALBUMIN 3.3 g/dl (3.4-5.0); BLOOD UREA NITROGEN 6.8 mg/dL (7-18)
[2023-05-24 09:35] LABS: CREATININE 0.5 mg/dL (0.55-1.3)
[2023-05-24 09:37] LABS: BILIRUBIN,TOTAL 0.6 mg/dL (0.2-1); TOT PROT 6.7 g/dl (6.4-8.2)
[2023-05-24 10:12] LABS: PLATELET ESTIMATE DECREASED
[2023-05-24] MEDS: METOPROLOL TARTRATE 50 MG TABLET (FP) PO SCH ×2 (10:16→21:35)
[2023-05-24] MEDS: LOSARTAN POTASSIUM 50 MG TABLET PO SCH (10:16)
[2023-05-24] MEDS: SODIUM CHLORIDE 1 GM TABLET PO SCH ×2 (10:16→21:35)
[2023-05-24] MEDS: PANTOPRAZOLE 20 MG TABLET PO SCH (10:16)
[2023-05-24] MEDS: CEFTRIAXONE 1 GM in DEXTROSE 5%-WATER - 50 ML IVPB SCH (10:16)
[2023-05-24] MEDS: OSELTAMIVIR PHOSPHATE 75 MG CAPSULE PO SCH ×2 (10:17→21:35)
[2023-05-24 13:07] LABS: HLA CLASS 1 ANTIBODY Negative (Negative)
[2023-05-24] MEDS: ACETAMINOPHEN 325 MG TABLET (FP) PO PRN (17:34)
[2023-05-24] MEDS: guaiFENesin 200 MG/10 ML 10 ML UNIT-DOSE CUPS PO PRN (17:35)
[2023-05-25] MEDS: guaiFENesin 200 MG/10 ML 10 ML UNIT-DOSE CUPS PO PRN (06:25)
[2023-05-25] MEDS: METOPROLOL TARTRATE 50 MG TABLET (FP) PO SCH ×2 (09:41→21:02)
[2023-05-25] MEDS: PANTOPRAZOLE 20 MG TABLET PO SCH (09:41)
[2023-05-25] MEDS: SODIUM CHLORIDE 1 GM TABLET PO SCH ×2 (09:41→21:02)
[2023-05-25] MEDS: LOSARTAN POTASSIUM 50 MG TABLET PO SCH (09:41)
[2023-05-25] MEDS: CEFTRIAXONE 1 GM in DEXTROSE 5%-WATER - 50 ML IVPB SCH (09:41)
[2023-05-25] MEDS: OSELTAMIVIR PHOSPHATE 75 MG CAPSULE PO SCH ×2 (09:43→21:04)
[2023-05-26 08:22] LABS: POTASSIUM 4.1 mmol/L (3.5-5.1)
[2023-05-26 08:28] LABS: BLOOD UREA NITROGEN 8.3 mg/dL (7-18)
[2023-05-26 08:29] LABS: ALBUMIN 3.6 g/dl (3.4-5.0)
[2023-05-26 08:30] LABS: CREATININE 0.6 mg/dL (0.55-1.3)
[2023-05-26 08:32] LABS: BILIRUBIN,TOTAL 0.8 mg/dL (0.2-1); TOT PROT 7.2 g/dl (6.4-8.2)
[2023-05-26] MEDS: ACETAMINOPHEN 325 MG TABLET (FP) PO PRN (09:21)
[2023-05-26] MEDS: CEFTRIAXONE 1 GM in DEXTROSE 5%-WATER - 50 ML IVPB SCH (09:22)
[2023-05-26] MEDS: PANTOPRAZOLE 20 MG TABLET PO SCH (09:22)
[2023-05-26] MEDS: SODIUM CHLORIDE 1 GM TABLET PO SCH ×2 (09:22→21:41)
[2023-05-26] MEDS: LOSARTAN POTASSIUM 50 MG TABLET PO SCH (09:22)
[2023-05-26] MEDS: METOPROLOL TARTRATE 50 MG TABLET (FP) PO SCH ×2 (09:22→21:41)
[2023-05-27] MEDS: METOPROLOL TARTRATE 50 MG TABLET (FP) PO SCH (09:18)
[2023-05-27] MEDS: SODIUM CHLORIDE 1 GM TABLET PO SCH (09:18)
[2023-05-27] MEDS: ACETAMINOPHEN 325 MG TABLET (FP) PO PRN (09:19)
[2023-05-27] MEDS: PANTOPRAZOLE 20 MG TABLET PO SCH (09:19)
[2023-05-27] MEDS: LOSARTAN POTASSIUM 50 MG TABLET PO SCH (09:19)
[2023-05-27 13:29] VITALS: BP 177/61; PULSE 110; RESP 18; TEMP 98.6
== END 2023-05-27 15:06 | disposition home health service (06) | DRG 194 ==
LOC: JER 10:38 → JERBED 14:11 → OBSVTOIN 15:47 → J8W 16:11 → J4W 18:18
PROVIDERS: ADMIT Specialist; ATTEND Specialist
DX: J10.1 Influenza due to other identified influenza virus with other respiratory manifestations (principal); N39.0 Urinary tract infection, site not specified; E22.2 Syndrome of inappropriate secretion of antidiuretic hormone; D69.6 Thrombocytopenia, unspecified; I10 Essential (primary) hypertension; E11.9 Type 2 diabetes mellitus without complications; I11.9 Hypertensive heart disease without heart failure; E78.5 Hyperlipidemia, unspecified
CPT/HCPCS: 0241U-QW; 36415; 71045-TC-FY; 74176-TC; 80053; 81003; 82550; 82962; 84484; 85025; 85032; 86022; 87086; 87186; 93005; 93010; 97116-GP; 97161-GP; 99285-25; G0378

== ENCOUNTER 2024-12-12 17:41 | Emergency (ER) | payer OTHER ==
[2024-12-12 18:04] VITALS: BP 142/58; PULSE 94; RESP 18; TEMP 99.3; BMI 27.2
[2024-12-12] MEDS ORDERED: FAMOTIDINE 20 MG/50 ML IVPB 20 MG/50 ML MG IVPB ONE (18:54)
[2024-12-12] MEDS: LACTATED RINGERS SOLUTION 1000 ML INFUS.BAG IV ONE (19:44)
[2024-12-12] MEDS: FAMOTIDINE 20 MG/50 ML IVPB 20 MG/50 ML MG IVPB ONE (19:44)
[2024-12-12 20:12] LABS: HEMATOCRIT 29.7 % (34.1-44.9); HEMOGLOBIN 9.5 g/dL (11.2-15.7); MEAN CELL VOLUME 86.3 fl (79.4-94.8)
[2024-12-12 20:31] LABS: PH,URINE 6.5 (5.0-8.0); URINE APPEARANCE CLEAR; URINE BILIRUBIN NEGATIVE (NEGATIVE); URINE COLOR YELLOW; URINE GLUCOSE (UA) NEGATIVE (NEGATIVE); URINE KETONE TRACE (NEGATIVE); URINE LEUK ESTERASE NEGATIVE (NEGATIVE); URINE NITRITE NEGATIVE (NEGATIVE); URINE PROTEIN TRACE (NEGATIVE)
[2024-12-12 21:16] LABS: POTASSIUM 4.5 mmol/L (3.5-5.1)
[2024-12-12 21:20] LABS: ALBUMIN 3.3 g/dl (3.4-5.0); CALCIUM 8.9 mg/dL (8.5-10.1); MAGNESIUM 1.5 mg/dL (1.8-2.4)
[2024-12-12 21:23] LABS: CREATININE 0.6 mg/dL (0.55-1.3)
[2024-12-12 21:24] LABS: BILIRUBIN,TOTAL 0.4 mg/dL (0.2-1); BLOOD UREA NITROGEN 8.6 mg/dL (7-18)
[2024-12-12 21:25] LABS: TOT PROT 6.7 g/dl (6.4-8.2)
== END 2024-12-12 23:19 | disposition home or self-care (01) ==
LOC: JER 17:41
PROC: 3E033GC Introduction of Other Therapeutic Substance into Peripheral Vein, Percutaneous Approach (ICD-10-PCS; principal; 2024-12-12)
DX: R19.7 Diarrhea, unspecified (principal)
CPT/HCPCS: 0241U-QW; 36415; 74177-TC; 80053; 81003; 83735; 85025; 87086; 96365; 99285-25; Q9967

== ENCOUNTER 2024-12-14 04:03 | Emergency (ER) | payer OTHER ==
[2024-12-14 04:31] VITALS: TEMP 97.9; BMI 27.2
[2024-12-14] MEDS: LACTATED RINGERS SOLUTION 1000 ML INFUS.BAG IV ONE (05:50)
[2024-12-14 07:02] LABS: ABSOLUTE IMMATURE GRANULOCYTES 0.03 x10^3/uL (0.0-0.031); EOSINOPHIL % 1.5 % (0.7-5.8); EOSINOPHILS # 0.15 x10^3/uL (0.04-0.36); POTASSIUM 4.6 mmol/L (3.5-5.1); RDW 13.6 % (12.5-17.0)
[2024-12-14 07:04] LABS: ALBUMIN 3.3 g/dl (3.4-5.0); BASOPHILS # 0.05 x10^3/uL (0.01-0.08); CALCIUM 8.9 mg/dL (8.5-10.1); HEMATOCRIT 31.2 % (34.1-44.9); MCHC 32.1 g/dl (32.2-35.5); MONOCYTE # 1.02 x10^3/uL (0.24-0.86); MONOCYTE % 10.2 % (4.7-12.5)
[2024-12-14 07:05] LABS: MAGNESIUM 1.3 mg/dL (1.8-2.4)
[2024-12-14 07:07] LABS: CREATININE 0.6 mg/dL (0.55-1.3)
[2024-12-14 07:09] LABS: BILIRUBIN,TOTAL 0.6 mg/dL (0.2-1); TOT PROT 6.7 g/dl (6.4-8.2)
[2024-12-14] MEDS ORDERED: MAGNESIUM SULFATE IN WATER 2 GM/50 ML IVPB IVPB ONE (07:45)
[2024-12-14] MEDS: MAGNESIUM SULFATE IN WATER 2 GM/50 ML IVPB IVPB ONE (08:06)
[2024-12-14 08:41] VITALS: BP 115/60; PULSE 87; RESP 20
== END 2024-12-14 10:07 | disposition home or self-care (01) ==
LOC: JER 04:03
PROC: 3E033GC Introduction of Other Therapeutic Substance into Peripheral Vein, Percutaneous Approach (ICD-10-PCS; principal; 2024-12-14)
DX: R19.7 Diarrhea, unspecified (principal)
CPT/HCPCS: 36415; 80053; 83690; 83735; 85025; 99284-25